=== PATIENT | female | born 1945 | race Two or more races ===

== ENCOUNTER 2018-04-13 11:33 | Inpatient (IN) | payer MEDICARE, BC ==
[~2018-04-13] VITALS: Ht 154.9 cm; Wt 66.7 kg
[2018-04-13 11:33] VITALS: BP 127/80
[~2018-04-13 11:33] MED LIST: ASPIR 8181 MG ORAL; COREG3.125 MG ORAL; NITROGLYCERIN2.5 MG PO; SPIRONOLACTONE100 MG ORAL; XANAX0.5 MG ORAL
--- NOTE | 2018-04-13 11:33 | NUR ---
ED Nurse Note: brought in by Obie from home due to chest pain that started at 1030, nonradiating, 11/16. Pt took 3 nitro and 325mg aspirin. Denies any CP at this time. Meme/Osvaldo. Addendum: 04/13/18 at 1314 by [email or web address] ED Nurse Note: brought in by Obie from home due to chest pain that started at 1030, nonradiating, 11/16. Pt took 3 nitro and 325mg aspirin. Pt's CP went down to 5/10. Denies any CP at this time. Meme/Osvaldo.
--- NOTE | 2018-04-13 11:50 | NUR ---
Note woodone in EDM - 04/13/18 at 1314 by [email or web address] ED Nurse Note: brought in by RA 97 from home due to chest pain that started at 1030, nonradiating, 11/16. Pt took 3 nitro and 325mg aspirin. Pt's CP went down to 5/10. Denies any CP at this time. A/Ox4.
[2018-04-13 11:53] LABS: BASOPHILS % (AUTO) 0.5 % (0.0-2.0); EOSINOPHILS % (AUTO) 0.3 % (0.0-3.0); HEMATOCRIT 34.3 % (37.0-47.0); HEMOGLOBIN 11.7 G/DL (12.0-16.0); MEAN CORPUSCULAR VOLUME 101 FL (80-99); MONOCYTES % (AUTO) 9.1 % (1.0-10.0); NEUTROPHILS % (AUTO) 71.1 % (45.0-75.0); PLATELET COUNT 185 K/UL (150-450); RED BLOOD COUNT 3.42 M/UL (4.20-5.40); RED CELL DISTRIBUTION WIDTH 11.4 % (11.6-14.8); WHITE BLOOD COUNT 9.7 K/UL (4.8-10.8)
[2018-04-13 12:02] LABS: ANION GAP 11 mmol/L (5-15); BLOOD UREA NITROGEN 51 mg/dL (7-18); CARBON DIOXIDE 27 MMOL/L (21-32); CHLORIDE 95 MMOL/L (98-107); CREATININE 1.4 MG/DL (0.55-1.30); POTASSIUM 4.2 MMOL/L (3.5-5.1); SODIUM 133 MMOL/L (136-145)
[2018-04-13 12:17] LABS: ALANINE AMINOTRANSFERASE 42 U/L (12-78); ALBUMIN/GLOBULIN RATIO 1.2 (1.0-2.7); ALKALINE PHOSPHATASE 73 U/L (46-116); ASPARTATE AMINO TRANSFERASE 31 U/L (15-37); BILIRUBIN,TOTAL 0.4 MG/DL (0.2-1.0); CKMB 1.7 NG/ML (0.0-3.6); CREATINE KINASE 77 U/L (26-308)
--- NOTE | 2018-04-13 12:35 | Diagnostic Imaging Report ---
Indication: Chest pain Technique: One view of the chest Comparison: none Findings: There is a left chest unipolar AICD. There are bilateral breast implants. These demonstrate peripheral calcifications. Some atelectasis is seen at the left lateral lung base. Lungs and pleural spaces are clear otherwise. The heart size is normal. The aorta is tortuous Impression: No acute process. Findings as noted
--- NOTE | 2018-04-13 13:29 | NUR ---
ED Nurse Note: 2D Bakery Worker Conveyor Line at the bedside.
[2018-04-13] MEDS ORDERED: dilTIAZem HCl 25mg/5ml Inj IV PRN (13:30)
[2018-04-13] MEDS ORDERED: Enalaprilat 2.5mg/2ml Inj IV PRN (13:30)
[2018-04-13] MEDS ORDERED: Nitroglycerin Subl 0.4mg tab SL PRN (13:30)
[2018-04-13] MEDS ORDERED: Albuterol/Ipratropium 3ml neb HHN PRN (13:30)
[2018-04-13] MEDS ORDERED: Miralax 17gm pkt ORAL PRN (13:30)
[2018-04-13] MEDS ORDERED: Ketorolac 30mg Inj IV PRN (13:30)
[2018-04-13] MEDS ORDERED: Morphine Sulfate 2mg/ml Inj(IV/IM USE ONLY) IVP PRN (13:30)
--- NOTE | 2018-04-13 14:18 | Emergency Room Report ---
History of Present Illness General Chief Complaint: Chest Pain Source: Patient Present Illness HPI 72-year-old female presents ED for evaluation. Patient brought in by EMS for chest pain. Started earlier today while at rest. Substernal, pressure-like, 8 out of 10, nonradiating. States she took nitroglycerin 3 with aspirin without significant relief so she called 911. States that by the time she got to the hospital for her chest pain has since resolved. Denies chest pain at this time. Notes history of hypertension and stent placement. Previous OR. Has a defibrillator. States that her singing messenger is Dr. Trevor Kraus at [facility]. Denies alcohol or drug use. States she is compliant with her medications. No other aggravating relieving factors. Denies any other associated symptoms Allergies: Coded Allergies: No Known Allergies (Unverified , 04/13/18) Patient History Past Medical History: OR, CAD Past Surgical History: none, CABG Pertinent Family History: none Social History: Denies: smoking, alcohol use, drug use Last Menstrual Period: n/a Now: No Immunizations: UTD Reviewed Nursing Documentation: PMH: Agreed; PSxH: Agreed Nursing Documentation-PMH Hx Cardiac Problems: Yes - cardiac arrest 2015, 2 MIs Review of Systems All Other Systems: negative except mentioned in HPI Physical Exam Vital Signs Date Time Temp Pulse Resp B/P (MAP) Pulse Ox O2 Delivery O2 Flow Rate FiO2 04/13/18 11:25 98.2 70 18 100/52 98 Room Air Sp02 EP Interpretation: reviewed, normal General Appearance: no apparent distress, alert, GCS 15, non-toxic Head: normocephalic, atraumatic Eyes: bilateral eye normal inspection, bilateral eye PERRL ENT: hearing grossly normal, normal pharynx, no angioedema, normal voice Neck: full range of motion, supple/symm/no masses Respiratory: chest non-tender, lungs clear, normal breath sounds, speaking full sentences Cardiovascular #1: regular rate, rhythm, no edema Cardiovascular #2: 2+ carotid (R), 2+ carotid (L), 2+ radial (R), 2+ radial (L) , 2+ dorsalis pedis (R), 2+ dorsalis pedis (L) Gastrointestinal: normal bowel sounds, non tender, soft, non-distended, no guarding, no rebound Rectal: deferred Genitourinary: normal inspection, no CVA tenderness Musculoskeletal: back normal, gait/station normal, normal range of motion, non- tender Neurologic: alert, oriented x3, responsive, motor strength/tone normal, sensory intact, speech normal Psychiatric: judgement/insight normal, memory normal, mood/affect normal, no suicidal/homicidal ideation Reflexes: 3+ bicep (R), 3+ bicep (L), 3+ tricep (R), 3+ tricep (L), 3+ knee (R) , 3+ knee (L) Skin: normal color, no rash, warm/dry, well hydrated Lymphatic: no adenopathy Medical Decision Making Diagnostic Impression: Primary Impression: ACS (acute coronary syndrome) Additional Impression: Renal insufficiency ER Course Hospital Course 72 yo F presents to ED c/o chest pain. Differential diagnoses include: OR/unstable angina, contusion, muscle strain, PTX, rib fracture Clinical course Patient placed on stretcher. on cardiac exercise physiologist. After initial history and physical I ordered labs, EKG, chest x-ray labs reviewed- no leukocytosis, hb/hct stable, BUN/Cr elevated, trop negative EKG - NSR, twave flattening noted Chest x-ray- AICD noted, no acute process I spoke to patient's singing messenger Dr. Trevor Kraus; given significant risk factors patient will be admitted Case discussed with Dr. Diaz and he agreed to accept the patient to his service for further care and support I. I feel this is a highly complex case requiring extensive working including EKG/Rhythm strip, Xray/CT/US, Blood/urine lab work, repeat exams while in ED, and administration of strong opiates/narcotics for pain control, admission to hospital or close patient follow up. Diagnosis - ACS, renal insufficiency admitted to telemetry in serious condition Labs Test 04/13/18 11:40 White Blood Count 9.7 K/UL (4.8-10.8) Red Blood Count 3.42 M/UL (4.20-5.40) Hemoglobin 11.7 G/DL (12.0-16.0) Hematocrit 34.3 % (37.0-47.0) Mean Corpuscular Volume 101 FL (80-99) Mean Corpuscular Hemoglobin 34.2 PG (27.0-31.0) Mean Corpuscular Hemoglobin Concent 34.0 G/DL (32.0-36.0) Red Cell Distribution Width 11.4 % (11.6-14.8) Platelet Count 185 K/UL (150-450) Mean Platelet Volume 6.0 FL (6.5-10.1) Neutrophils (%) (Auto) 71.1 % (45.0-75.0) Lymphocytes (%) (Auto) 19.0 % (20.0-45.0) Monocytes (%) (Auto) 9.1 % (1.0-10.0) Eosinophils (%) (Auto) 0.3 % (0.0-3.0) Basophils (%) (Auto) 0.5 % (0.0-2.0) Sodium Level 133 MMOL/L (136-145) Potassium Level 4.2 MMOL/L (3.5-5.1) Chloride Level 95 MMOL/L (98-107) Carbon Dioxide Level 27 MMOL/L (21-32) Anion Gap 11 mmol/L (5-15) Blood Urea Nitrogen 51 mg/dL (7-18) Creatinine 1.4 MG/DL (0.55-1.30) Estimat Glomerular Filtration Rate mL/min (>60) Glucose Level 106 MG/DL (74-106) Calcium Level 9.0 MG/DL (8.5-10.1) Total Bilirubin 0.4 MG/DL (0.2-1.0) Aspartate Amino Transf (AST/SGOT) 31 U/L (15-37) Alanine Aminotransferase (ALT/SGPT) 42 U/L (12-78) Alkaline Phosphatase 73 U/L (46-116) Total Creatine Kinase 77 U/L (26-308) Creatine Kinase MB 1.7 NG/ML (0.0-3.6) Creatine Kinase MB Relative Index 2.2 Troponin I 0.000 ng/mL (0.000-0.056) Pro-B-Type Natriuretic Peptide 363 pg/mL (0-125) Total Protein 7.3 G/DL (6.4-8.2) Albumin 4.0 G/DL (3.4-5.0) Globulin 3.3 g/dL Albumin/Globulin Ratio 1.2 (1.0-2.7) EKG Diagnostic Results Rate: normal Rhythm: NSR ST Segments: other - flattend twaves ASA given to the pt in ED: No - taken prior to arrival Rhythm Strip Diag. Results EP Interpretation: yes Rhythm: NSR, no PVC's, no ectopy Chest X-Ray Diagnostic Results Chest X-Ray Diagnostic Results : Chest X-Ray Ordered: Yes # of Views/Limited/Complete: 1 View Indication: Chest Pain EP Interpretation: Yes Interpretation: no consolidation, no effusion, no pneumothorax, no acute cardiopulmonary disease, other - AICD Impression: No acute disease Electronically Signed by: Electronically signed by Chano Galvez MD Last Vital Signs Date Time Temp Pulse Resp B/P (MAP) Pulse Ox O2 Delivery O2 Flow Rate FiO2 04/13/18 11:33 70 18 Room Air 04/13/18 11:33 98.2 127/80 100 Status: improved Disposition: ADMITTED INPATIENT Condition: Serious Referrals: NON PHYSICIAN (PCP) Chano Galvez MD Apr 13, 2018 14:18
--- NOTE | 2018-04-13 14:26 | NUR ---
ED Nurse Note: notified dr. Lanier that pt took Aspirin today. Per Dr. Lanier, no need to give aspirin. medication returned.
[2018-04-13] MEDS ORDERED: ALPRAZOLAM0.5 MG PO (14:32)
[2018-04-13] MEDS ORDERED: AMBIEN10 M1 ORAL (14:32)
[2018-04-13] MEDS ORDERED: COLCRYS0.6 M1 PO (14:32)
[2018-04-13] MEDS ORDERED: ENTRESTO 24 MG1 EACH PO (14:32)
[2018-04-13] MEDS ORDERED: TYLENOL EXTRA500 MG ORAL (14:32)
[2018-04-13] MEDS ORDERED: LIPITOR80 MG ORAL (14:32)
[2018-04-13] MEDS ORDERED: LAMICTAL200 MG ORAL (14:32)
[2018-04-13] MEDS ORDERED: METHOCARBAMOL5000 GM MC (14:32)
[2018-04-13] MEDS ORDERED: PEPCID AC20 M2 PO (14:32)
--- NOTE | 2018-04-13 14:39 | NUR ---
ED Nurse Note: attempted to give report. Per SONIA Perez, he will call back
[2018-04-13 14:55] VITALS: BP 101/50
--- NOTE | 2018-04-13 14:57 | NUR ---
ED Nurse Note: telephone report given to CN. Elbert
--- NOTE | 2018-04-13 15:03 | NUR ---
TRANSFER TO FLOOR: Patient transferred to #[id number] as ordered via [facility] by KELSI Joya. Report given to KELSI Boswell. Belongings given to patient. Family and or S/O informed of transfer. Denies any CP. No s/s of distress. Skin intact. Addendum: 04/13/18 at 1504 by [email or web address] TRANSFER TO FLOOR: Patient [facility] #[id number] by KELSI Joya. Report given to KELSI Boswell. Belongings given to patient. Family and or S/O informed of transfer. Denies any CP. No s/s of distress. Skin intact. A/Ox4.
--- NOTE | 2018-04-13 15:44 | Consultation ---
History of Present Illness General Date patient seen: Apr 13, 2018 Chief Complaint: Chest Pain Present Illness HPI 72-year-old female with hx of CAD, Stents, Defibrillator, gout presented to ED for evaluation of chest pain while at rest, Substernal, pressure-like, 8 out of 10, nonradiating. States she took nitroglycerin 3 with aspirin without significant relief so she called 911. States she is compliant with her medications. No other aggravating relieving factors. Denies any other associated symptoms. She is admitted to telemetry for further evaluation. Allergies: Coded Allergies: No Known Allergies (Unverified , 04/13/18) Medication History Scheduled Aspirin* (Aspir 81*), 81 MG ORAL DAILY, (Reported) Atorvastatin (Lipitor), 40 MG ORAL BEDTIME, (Reported) Carvedilol (Coreg), 3.125 MG ORAL EVERY 12 HOURS, (Reported) Colchicine (Colcrys), 0.6 MG PO monwed fri, (Reported) Lamotrigine (Lamictal), 200 MG ORAL DAILY, (Reported) Methocarbamol (Methocarbamol), 500 MG MC DAILY, (Reported) Sacubitril/Valsartan (Entresto 24 mg-26 mg Tablet), 1 EACH PO TWICE A DAY, ( Reported) Spironolactone* (Spironolactone*), 100 MG ORAL DAILY, (Reported) Scheduled PRN Acetaminophen* (Tylenol Extra Strength*), 500 MG ORAL Q6H PRN for Mild Pain/ Temp > 100.5, (Reported) Alprazolam* (Xanax*), 0.25 MG PO BID PRN for as needed, (Reported) Zolpidem Tartrate* (Ambien*), 10 MG ORAL HS PRN for Insomnia, (Reported) Miscellaneous Medications Alprazolam* (Xanax*), 0.5 MG ORAL, (Reported) Famotidine (Pepcid Ac), 20 MG PO, (Reported) Nitroglycerin (Nitroglycerin), 2.5 MG PO, (Reported) Patient History Healthcare decision maker Resuscitation status Advanced Directive on File No Past Medical/Surgical History Past Medical/Surgical History: (1) CAD (coronary artery disease) (2) Stented coronary artery (3) ICD (implantable cardioverter-defibrillator) in place Review of Systems Cardiovascular: Reports: chest pain Physical Exam General Appearance: WD/WN, no apparent distress Lines, tubes and drains: peripheral HEENT: normocephalic, atraumatic Neck: non-tender, normal alignment Respiratory/Chest: chest wall non-tender Breasts: no masses Cardiovascular/Chest: normal peripheral pulses Abdomen: non tender Genitourinary/Rectal: normal genital exam Extremities: normal range of motion Last 24 Hour Vital Signs Date Time Temp Pulse Resp B/P (MAP) Pulse Ox O2 Delivery O2 Flow Rate FiO2 04/13/18 15:01 98.2 68 18 101/50 100 Room Air 04/13/18 14:55 98.2 68 18 101/50 100 Room Air 04/13/18 11:33 70 18 Room Air 04/13/18 11:33 98.2 56 16 127/80 100 Room Air 04/13/18 11:25 98.2 70 18 100/52 98 Room Air Laboratory Tests Test 04/13/18 11:40 White Blood Count 9.7 K/UL (4.8-10.8) Red Blood Count 3.42 M/UL (4.20-5.40) L Hemoglobin 11.7 G/DL (12.0-16.0) L Hematocrit 34.3 % (37.0-47.0) L Mean Corpuscular Volume 101 FL (80-99) H Mean Corpuscular Hemoglobin 34.2 PG (27.0-31.0) H Mean Corpuscular Hemoglobin Concent 34.0 G/DL (32.0-36.0) Red Cell Distribution Width 11.4 % (11.6-14.8) L Platelet Count 185 K/UL (150-450) Mean Platelet Volume 6.0 FL (6.5-10.1) L Neutrophils (%) (Auto) 71.1 % (45.0-75.0) Lymphocytes (%) (Auto) 19.0 % (20.0-45.0) L Monocytes (%) (Auto) 9.1 % (1.0-10.0) Eosinophils (%) (Auto) 0.3 % (0.0-3.0) Basophils (%) (Auto) 0.5 % (0.0-2.0) Sodium Level 133 MMOL/L (136-145) L Potassium Level 4.2 MMOL/L (3.5-5.1) Chloride Level 95 MMOL/L (98-107) L Carbon Dioxide Level 27 MMOL/L (21-32) Anion Gap 11 mmol/L (5-15) Blood Urea Nitrogen 51 mg/dL (7-18) H Creatinine 1.4 MG/DL (0.55-1.30) H Estimat Glomerular Filtration Rate mL/min (>60) Glucose Level 106 MG/DL (74-106) Calcium Level 9.0 MG/DL (8.5-10.1) Total Bilirubin 0.4 MG/DL (0.2-1.0) Aspartate Amino Transf (AST/SGOT) 31 U/L (15-37) Alanine Aminotransferase (ALT/SGPT) 42 U/L (12-78) Alkaline Phosphatase 73 U/L (46-116) Total Creatine Kinase 77 U/L (26-308) Creatine Kinase MB 1.7 NG/ML (0.0-3.6) Creatine Kinase MB Relative Index 2.2 Troponin I 0.000 ng/mL (0.000-0.056) Pro-B-Type Natriuretic Peptide 363 pg/mL (0-125) H Total Protein 7.3 G/DL (6.4-8.2) Albumin 4.0 G/DL (3.4-5.0) Globulin 3.3 g/dL Albumin/Globulin Ratio 1.2 (1.0-2.7) Height (Feet): 5 Height (Inches): 3.00 Weight (Pounds): 120 Medications Current Medications Medications (Trade) Dose Ordered Sig/Juan Route PRN Reason Start Time Stop Time Status Last Admin Dose Admin Acetaminophen (Tylenol) 650 mg Q4H PRN ORAL FEVER 04/13/18 13:30 05/13/18 13:29 Albuterol/ Ipratropium (Albuterol/ Ipratropium) 3 ml Q4H PRN HHN Shortness of Breath 04/13/18 13:30 04/18/18 13:29 Alprazolam (Xanax) 0.5 mg EVERY 8 HOURS ORAL 04/13/18 22:00 04/20/18 21:59 Aspirin (ASA) 162 mg DAILY ORAL 04/14/18 09:00 05/14/18 08:59 Carvedilol (Coreg) 3.125 mg EVERY 12 HOURS ORAL 04/13/18 21:00 05/13/18 20:59 Diltiazem HCl (Cardizem) 10 mg Q1H PRN IV heart rate more than 120 04/13/18 13:30 05/13/18 13:29 Enalaprilat (Vasotec) 2.5 mg Q6H PRN IV sbp more than 160 04/13/18 13:30 05/13/18 13:29 Heparin Sodium (Porcine) (Heparin 5000 units/ml) 5,000 units EVERY 12 HOURS SUBQ 04/13/18 21:00 05/13/18 20:59 Ketorolac Tromethamine (Toradol 30mg) 30 mg Q6H PRN IV moderate pain ( 4-6) 04/13/18 13:30 04/18/18 13:29 Morphine Sulfate (Morphine Sulfate) 2 mg Q4H PRN IVP severe Pain (Pain Scale 7-10) 04/13/18 13:30 04/20/18 13:29 Nitroglycerin (Ntg) 0.4 mg Q5M PRN SL Prn Chest Pain 04/13/18 13:30 05/13/18 13:29 Ondansetron HCl (Zofran) 4 mg Q6H PRN IVP Nausea & Vomiting 04/13/18 13:30 05/13/18 13:29 Polyethylene Glycol (Miralax) 17 gm DAILYPRN PRN ORAL Constipation 04/13/18 13:30 05/13/18 13:29 Spironolactone (Aldactone) 100 mg DAILY ORAL 04/14/18 09:00 05/14/18 08:59 Temazepam (Restoril) 15 mg HSPRN PRN ORAL Insomnia 04/13/18 13:30 04/20/18 13:29 Assessment/Plan Problem List: (1) ACS (acute coronary syndrome) ICD Codes: I24.9 - Acute ischemic heart disease, unspecified SNOMED: 526979504 (2) Renal insufficiency ICD Codes: N28.9 - Disorder of kidney and ureter, unspecified SNOMED: 409734978, 699757262 (3) Anxiety ICD Codes: F41.9 - Anxiety disorder, unspecified SNOMED: 05224616 (4) Gout ICD Codes: M10.9 - Gout, unspecified SNOMED: 10968541 Assessment/Plan serial ekg, troponin, echocardiogram monitor renal function. cardiology evaluation symptomatic treatment renal studies dvt prophylaxis Joyce Melendrez MD Apr 13, 2018 15:44
--- NOTE | 2018-04-13 15:49 | NUR ---
admission note: received pateint, a+o x4, breathing even and unlabored on room air. Denies pain, denies dizziness, denies nausea and constipation. Put in single room in 221-2 as requested. Daughter at bed side with multiple requests. skin intact. on tele monitor. oriented to unit. bed alarm on. instructed pipeline controller light use. call light in reach.
[2018-04-13 16:00] VITALS: BP 108/51
--- NOTE | 2018-04-13 17:46 | History & Physical ---
History and Physical History & Physicial Dictated for Int Med-Dr Diaz no. [id number]. Tru Quintanilla MD Apr 13, 2018 17:46
--- NOTE | 2018-04-13 19:15 | NUR ---
NURSE NOTES: Received report from Kiet Crowe RN. Pt is resting in the bed w/o respiratory distress in RA. Bed is in the lowest position, side rails up x2, and breaks are engaged. Call light and side table are w/in reach. Will follow plans of care.
--- NOTE | 2018-04-13 19:36 | NUR ---
hand off: alert and oriented, SR on the monitor, breathing even and unlabored, denies pain, call light in reach, handed off to Pricilla
[2018-04-13 20:00] VITALS: BP 115/67
--- NOTE | 2018-04-13 20:46 | History and Physical Report ---
DATE OF ADMISSION: 04/13/2018 CHIEF COMPLAINT: The patient is a 72-year-old white female, who presents with a chief complaint of chest pain. HISTORY OF PRESENT ILLNESS: The patient has a history of coronary artery disease. The patient is status post myocardial infarction x2 in 2014. The patient had cardiac arrest at that time. The patient underwent balloon angioplasty without stent placement in 2014. The patient states history of present illness began this morning about 10 a.m. while working a [employer] puzzle. The patient began to experience substernal chest pain. This radiated to the neck and to the jaw. The patient states the pain radiates to the bilateral jaws. The patient denies radiation to the shoulder. The patient states the pain lasted approximately 40 minutes. The patient presented to [place] emergency room. The patient was admitted with chest pain to rule out acute coronary syndrome. REVIEW OF SYSTEMS: CONSTITUTIONAL: The patient denies weight loss or weight gain. The patient denies fevers or chills. HEENT: The patient denies ear or throat pain. The patient denies headache. CARDIOVASCULAR: The patient complains of chest pain as above. The patient denies palpitations. CHEST: The patient denies wheeze or shortness of breath. ABDOMINAL: The patient denies nausea, vomiting, diarrhea, or constipation. GENITOURINARY: The patient denies dysuria or increased frequency of urination. NEUROMUSCULAR: The patient denies seizures or generalized weakness. PAST MEDICAL HISTORY: Significant for, 1. Coronary artery disease, status post myocardial infarction x2 and cardiac arrest as above. 2. History of pulmonary edema. 3. Hypertension. 4. Hypercholesterolemia. 5. Lumbar stenosis. PAST SURGICAL HISTORY: Significant for: 1. Coronary angioplasty as above. CURRENT MEDICATIONS: 1. Xanax 0.5 mg p.o. twice daily p.r.n. 2. Atorvastatin 40 mg p.o. at bedtime. 3. Coreg 3.125 mg p.o. twice daily. 4. Colchicine 0.6 mg p.o. every Tuesday, Tuesday, and Tuesday. 5. Pepcid 20 mg p.o. daily. 6. Lamictal 200 mg p.o. daily. 7. Robaxin 500 mg p.o. daily. 8. Nitroglycerin 2.5 mg p.o. daily. 9. Entresto 1 tablet p.o. twice daily. 10. Spironolactone 100 mg p.o. daily. 11. Ambien 10 mg p.o. at bedtime. ALLERGIES: No known drug allergies. SOCIAL HISTORY: The patient is single and lives with her adult daughter. The patient denies tobacco use having quit 23 years ago. The patient admits to alcohol use of one glass of wine and one vodka drink daily. PHYSICAL EXAMINATION: VITAL SIGNS: Temperature 98.2, respirations 18, pulse 70, and blood pressure 100/53. GENERAL: The patient is a well-developed and well-nourished white female, in no apparent distress. HEENT: Eyes, pupils are equal and responsive to light and accommodation. Extraocular movements are intact. NECK: Supple without lymphadenopathy. CHEST: Lungs are clear to auscultation bilaterally without wheezes or rales. CARDIOVASCULAR: Regular rhythm and rate. S1 and S2 are normal without murmurs, rubs, or gallops. ABDOMEN: Soft, nontender, and nondistended. Positive bowel sounds. No evidence of hepatosplenomegaly. Currently, no rebound or guarding noted. EXTREMITIES: Negative for clubbing, cyanosis, or edema. RECTAL/GENITAL: Refused. NEUROLOGIC: Cranial nerves II through XII are grossly intact without focal deficits. Motor strength is 5/5 bilaterally. Deep tendon reflexes are 2+ plantar. LABORATORY STUDIES: WBC 9.7, hemoglobin 11.7, hematocrit 34.3, and platelets 185,000. Sodium 133, potassium 4.2, chloride 95, CO2 27, BUN 51, creatinine 1.4, and glucose 106. Troponin 0.0. BNP 363. EKG is pending. Chest x-ray was reported as no acute disease. EKG is pending. ASSESSMENT: This is a 72-year-old white female. 1. Chest pain. 2. History of coronary artery disease. 3. Hypertension. 4. Hypoglycemia. 5. Lumbar stenosis. 6. Pulmonary edema. 7. AICD in situ. TREATMENT: 1. Chest pain/coronary artery disease. A Cardiology consultation has been obtained with Dr. Ricky Castle. Given history of myocardial infarction x2, serial troponin levels will be performed. The patient may require a Cardiolite stress test during this hospitalization. We will follow recommendations of Cardiology. 2. Hypertension. Continue Entresto as above. 3. Hypercholesterolemia. Continue atorvastatin as above. 4. Lumbar stenosis. 5. Pulmonary edema. 6. Automatic implanted cardioverter defibrillator in situ. Tru Quintanilla M.D. DR: LIVAN JOB#: [id number] CC:
[2018-04-13] MEDS: Heparin 5000 units/ml inj SUBQ SCH (21:00)
--- NOTE | 2018-04-13 21:06 | NUR ---
NURSE NOTES: Pt reported that she need more of home meds to be continued that what it is in the eMAR. Pt refused to take carvedilol 3.125 at this time d/t low dosage than what she usually take before. Will contact to Dr. Diaz regarding home meds. Addendum: 04/13/18 at 2234 by LILIANA CARNEY RN Dr. Diaz ordered Lipitor 40mg PO BID,Pepcid 20mg PO daily, Lamictal 200mg PO daily, Methocarbamol 200mg MC daily, Entresto 42mg PO dialy but discontinue nitropatch 0.1mg Q12HR. Pt said her home dosage 12.5mg of carvedilol BID, but Dr. Diaz denied to increase the dose from 3.125 BID. Any other home med for morning time will be reviewed in the morning per Dr. Diaz. Addendum: 04/13/18 at 8669 by LILIANA CARNEY RN Methocarbamol (Robaxin) 500mg, not 200mg. Also, Dr. Diaz ordered Neurontin 600mg PO daily, Ranexa 500mg PO daily. Pt was instructed to bring Entresto 42mg from home, family will bring it in the morning. Addendum: 04/14/18 at 0410 by LILIANA CARNEY RN Pepcid 20mg daily corrected to Q12H per Dr. Diaz.
[2018-04-13] MEDS: ALPRAZolam 0.5mg tab ORAL SCH (23:14)
[2018-04-13] MEDS: Ranolazine 500mg tab ORAL SCH (23:14)
[2018-04-13] MEDS ORDERED: Methocarbamol 500mg tab ORAL SCH (23:45)
[2018-04-14] VITALS: BP 111/68
[2018-04-14] MEDS: ALPRAZolam 0.5mg tab ORAL SCH ×2 (06:00→14:00)
[2018-04-14 06:52] VITALS: BP 94/48
--- NOTE | 2018-04-14 07:02 | NUR ---
NURSE NOTES: Xanax 0.5mg was wasted d/t pt's refusal after scanning and opening of med for 0600.
--- NOTE | 2018-04-14 07:03 | NUR ---
Dr. Diaz ordered to continue home med of Colchicine (colcrys) 0.6mg Tuesday, Tue, Tuesday. Ordere to keep Spironolacton 20.5mg, denied to increased dose to 100mg which is pt's home dose. Reported K 4.2 level. Will carry out the orders.
[2018-04-14 07:14] LABS: BASOPHILS % (AUTO) 0.6 % (0.0-2.0); EOSINOPHILS % (AUTO) 0.6 % (0.0-3.0); HEMATOCRIT 33.3 % (37.0-47.0); HEMOGLOBIN 11.2 G/DL (12.0-16.0); LYMPHOCYTES % (AUTO) 40.7 % (20.0-45.0); MEAN CORPUSCULAR VOLUME 101 FL (80-99); MONOCYTES % (AUTO) 8.9 % (1.0-10.0); NEUTROPHILS % (AUTO) 49.3 % (45.0-75.0); PLATELET COUNT 173 K/UL (150-450); RED CELL DISTRIBUTION WIDTH 11.7 % (11.6-14.8); WHITE BLOOD COUNT 6.4 K/UL (4.8-10.8)
--- NOTE | 2018-04-14 07:41 | NUR ---
NURSE NOTES: Received bedside report from Pricilla Mills RN. Pt. in bed, awake, a/o x 4. No sign of distress. Denies pain at present. IV site at right AC #20g. SL. Bed in low position, locked. Call light within reach. Will cont. to monitor.
--- NOTE | 2018-04-14 07:41 | NUR ---
HAND-OFF: Report given to KELSI Carter and KELSI Gracia.
[2018-04-14 08:00] VITALS: BP 96/54
[2018-04-14 08:14] LABS: CHOLESTEROL 160 MG/DL (< 200); HDL CHOLESTEROL 90 MG/DL (40-60); TRIGLYCERIDES 71 MG/DL (30-150)
[2018-04-14] MEDS ORDERED: Spironolactone 50mg tab ORAL SCH (09:00)
[2018-04-14] MEDS ORDERED: Aspirin Baby 81mg ORAL SCH (09:00)
[2018-04-14] MEDS ORDERED: Methocarbamol 500mg tab ORAL SCH ×2 (09:00)
[2018-04-14] MEDS: Ranolazine 500mg tab ORAL SCH (09:25)
[2018-04-14] MEDS: Heparin 5000 units/ml inj SUBQ SCH (09:28)
--- NOTE | 2018-04-14 09:58 | NUR ---
CASE MANAGEMENT:REVIEW 72 YR OLD FEMALE BIBA FROM HOME CC: CHEST PAIN SI: ACUTE CORONARY SYNDROME. RENAL INSUFF 98.2 70 18 100/52 98% ON RA BUN+51 CR+1.4 TROPONIN(-) IS: ASA PO ANDROID UI DEVELOPER NITRO X3 ANDROID UI DEVELOPER 500CC NS BOLUS 1L NS BOLUS X1 CXR : TO TELEMETRY INTERQUAL
[2018-04-14 11:14] LABS: CREATINE KINASE 48 U/L (26-308)
--- NOTE | 2018-04-14 11:30 | Pulmonology Progress Note ---
Assessment/Plan Problems: (1) ACS (acute coronary syndrome) (2) Renal insufficiency (3) Anxiety (4) Gout Assessment/Plan Echo reviewed, EF:555 all troponin are negative no more episode of chest pain awaiting cardiology renal w.u symptomatic treatment dvt prophylaxis. Subjective Interval Events: no new complains Allergies: Coded Allergies: No Known Allergies (Unverified , 04/13/18) Objective Last 24 Hour Vital Signs Date Time Temp Pulse Resp B/P (MAP) Pulse Ox O2 Delivery O2 Flow Rate FiO2 04/14/18 09:00 Room Air 04/14/18 09:00 85 96/54 04/14/18 08:00 98.5 85 18 96/54 (68) 94 04/14/18 07:56 82 04/14/18 06:52 96.8 64 18 94/48 (63) 97 04/14/18 03:41 68 04/14/18 00:04 69 04/14/18 00:00 98.0 65 18 111/68 (82) 98 04/13/18 23:13 68 115/67 04/13/18 21:00 Room Air 04/13/18 20:00 97.0 68 18 115/67 (83) 97 04/13/18 19:03 67 04/13/18 16:00 97.6 67 18 108/51 (70) 98 04/13/18 16:00 67 04/13/18 15:58 Room Air 04/13/18 15:01 98.2 68 18 101/50 100 Room Air 04/13/18 14:55 98.2 68 18 101/50 100 Room Air 04/13/18 11:33 70 18 Room Air 04/13/18 11:33 98.2 56 16 127/80 100 Room Air Intake and Output 04/13/18 04/14/18 19:00 07:00 Intake Total 1620 ml Balance 1620 ml Intake Oral 120 ml IV Total 1500 ml # Voids 3 General Appearance: WD/WN HEENT: atraumatic Respiratory/Chest: chest wall non-tender, lungs clear Breasts: no masses Cardiovascular: normal peripheral pulses Abdomen: normal bowel sounds, soft, non tender Genitourinary: normal external genitalia Skin: no rash Laboratory Tests 04/13/18 11:40: White Blood Count 9.7, Red Blood Count 3.42L, Hemoglobin 11.7L, Hematocrit 34.3L , Mean Corpuscular Volume 101H, Mean Corpuscular Hemoglobin 34.2H, Mean Corpuscular Hemoglobin Concent 34.0, Red Cell Distribution Width 11.4L, Platelet Count 185, Mean Platelet Volume 6.0L, Neutrophils (%) (Auto) 71.1, Lymphocytes (%) (Auto) 19.0L, Monocytes (%) (Auto) 9.1, Eosinophils (%) (Auto) 0.3, Basophils (%) (Auto) 0.5, Sodium Level 133L, Potassium Level 4.2, Chloride Level 95L, Carbon Dioxide Level 27, Anion Gap 11, Blood Urea Nitrogen 51H, Creatinine 1.4H, Estimat Glomerular Filtration Rate , Glucose Level 106, Calcium Level 9.0, Total Bilirubin 0.4, Aspartate Amino Transf (AST/SGOT) 31, Alanine Aminotransferase (ALT/SGPT) 42, Alkaline Phosphatase 73, Total Creatine Kinase 77, Creatine Kinase MB 1.7, Creatine Kinase MB Relative Index 2.2, Troponin I 0.000, Pro-B-Type Natriuretic Peptide 363H, Total Protein 7.3, Albumin 4.0, Globulin 3.3, Albumin/Globulin Ratio 1.2 04/14/18 05:40: White Blood Count 6.4, Red Blood Count 3.30L, Hemoglobin 11.2L, Hematocrit 33.3L , Mean Corpuscular Volume 101H, Mean Corpuscular Hemoglobin 34.0H, Mean Corpuscular Hemoglobin Concent 33.8, Red Cell Distribution Width 11.7, Platelet Count 173, Mean Platelet Volume 6.3L, Neutrophils (%) (Auto) 49.3, Lymphocytes ( %) (Auto) 40.7, Monocytes (%) (Auto) 8.9, Eosinophils (%) (Auto) 0.6, Basophils (%) (Auto) 0.6, Total Creatine Kinase 48, Troponin I 0.000, Prothrombin Time 10.7, Prothromb Time International Ratio 1.0, Activated Partial Thromboplast Time 28, Uric Acid 7.7H, C-Reactive Protein, Quantitative < 0.4, Triglycerides Level 71, Cholesterol Level 160, LDL Cholesterol 45, HDL Cholesterol 90H, Cholesterol/HDL Ratio 1.8L, Thyroid Stimulating Hormone (TSH) 3.448 Current Medications Medications (Trade) Dose Ordered Sig/Juan Route PRN Reason Start Time Stop Time Status Last Admin Dose Admin Acetaminophen (Tylenol) 650 mg Q4H PRN ORAL FEVER 04/13/18 13:30 05/13/18 13:29 04/13/18 23:17 Albuterol/ Ipratropium (Albuterol/ Ipratropium) 3 ml Q4H PRN HHN Shortness of Breath 04/13/18 13:30 04/18/18 13:29 Alprazolam (Xanax) 0.5 mg EVERY 8 HOURS ORAL 04/13/18 22:00 04/20/18 21:59 04/13/18 23:14 Aspirin (ASA) 162 mg DAILY ORAL 04/14/18 09:00 05/14/18 08:59 04/14/18 09:24 Atorvastatin Calcium (Lipitor) 40 mg BEDTIME ORAL 04/14/18 21:00 05/14/18 20:59 Carvedilol (Coreg) 3.125 mg EVERY 12 HOURS ORAL 04/13/18 21:00 05/13/18 20:59 04/13/18 23:13 Colchicine (Colchicine) 0.6 mg TUE-TUE-TUE ORAL 04/14/18 21:00 05/14/18 20:59 Diltiazem HCl (Cardizem) 10 mg Q1H PRN IV heart rate more than 120 04/13/18 13:30 05/13/18 13:29 Enalaprilat (Vasotec) 2.5 mg Q6H PRN IV sbp more than 160 04/13/18 13:30 05/13/18 13:29 Famotidine (Pepcid) 20 mg Q12HR ORAL 04/14/18 09:00 05/13/18 22:44 04/14/18 09:25 Gabapentin (Neurontin) 600 mg DAILY ORAL 04/13/18 22:45 05/13/18 22:44 04/13/18 23:15 Heparin Sodium (Porcine) (Heparin 5000 units/ml) 5,000 units EVERY 12 HOURS SUBQ 04/13/18 21:00 05/13/18 20:59 04/14/18 09:28 Ketorolac Tromethamine (Toradol 30mg) 30 mg Q6H PRN IV moderate pain ( 4-6) 04/13/18 13:30 04/18/18 13:29 Lamotrigine (LaMICtal) 200 mg DAILY ORAL 04/13/18 22:45 05/13/18 22:44 04/13/18 23:15 Methocarbamol (Robaxin) 500 mg DAILY ORAL 04/14/18 09:00 05/14/18 08:59 04/14/18 09:26 Morphine Sulfate (Morphine Sulfate) 2 mg Q4H PRN IVP severe Pain (Pain Scale 7-10) 04/13/18 13:30 04/20/18 13:29 Nitroglycerin (Ntg) 0.4 mg Q5M PRN SL Prn Chest Pain 04/13/18 13:30 05/13/18 13:29 Non-Formulary Medication (Non-Formulary Med) 1 ea BID ORAL 04/13/18 22:45 05/13/18 22:44 UNV Ondansetron HCl (Zofran) 4 mg Q6H PRN IVP Nausea & Vomiting 04/13/18 13:30 05/13/18 13:29 Polyethylene Glycol (Miralax) 17 gm DAILYPRN PRN ORAL Constipation 04/13/18 13:30 05/13/18 13:29 Ranolazine (Ranexa ER 500mg) 500 mg Q12HR ORAL 04/13/18 22:45 05/13/18 22:44 04/14/18 09:25 Spironolactone (Aldactone) 100 mg DAILY ORAL 04/14/18 09:00 05/14/18 08:59 04/14/18 09:26 Temazepam (Restoril) 15 mg HSPRN PRN ORAL Insomnia 04/13/18 13:30 04/20/18 13:29 04/13/18 23:59 Joyce Melendrez MD Apr 14, 2018 11:30
[2018-04-14 11:55] VITALS: BP 112/57
--- NOTE | 2018-04-14 13:19 | Cardiology Report ---
APPROVED REPORT EKG Measurement Heart [id number] Sinus bradycardia Anteroseptal infarct, age undetermined Abnormal ECG
[2018-04-14] MEDS ORDERED: Tubing IV Secondary IV ONE (15:20)
[2018-04-14 16:00] VITALS: BP 119/65
--- NOTE | 2018-04-14 17:11 | Cardiology Progress Note ---
Assessment/Plan Assessment/Plan [id number] Objective Last 24 Hour Vital Signs Date Time Temp Pulse Resp B/P (MAP) Pulse Ox O2 Delivery O2 Flow Rate FiO2 04/14/18 16:00 98.4 69 18 119/65 (83) 96 04/14/18 16:00 67 04/14/18 11:55 98.3 66 18 112/57 (75) 95 04/14/18 11:50 68 04/14/18 09:00 Room Air 04/14/18 09:00 85 96/54 04/14/18 08:00 98.5 85 18 96/54 (68) 94 04/14/18 07:56 82 04/14/18 06:52 96.8 64 18 94/48 (63) 97 04/14/18 03:41 68 04/14/18 00:04 69 04/14/18 00:00 98.0 65 18 111/68 (82) 98 04/13/18 23:13 68 115/67 04/13/18 21:00 Room Air 04/13/18 20:00 97.0 68 18 115/67 (83) 97 04/13/18 19:03 67 Intake and Output 04/13/18 04/14/18 19:00 07:00 Intake Total 1620 ml Balance 1620 ml Intake Oral 120 ml IV Total 1500 ml # Voids 3 Laboratory Tests Test 04/14/18 05:40 White Blood Count 6.4 K/UL (4.8-10.8) Red Blood Count 3.30 M/UL (4.20-5.40) L Hemoglobin 11.2 G/DL (12.0-16.0) L Hematocrit 33.3 % (37.0-47.0) L Mean Corpuscular Volume 101 FL (80-99) H Mean Corpuscular Hemoglobin 34.0 PG (27.0-31.0) H Mean Corpuscular Hemoglobin Concent 33.8 G/DL (32.0-36.0) Red Cell Distribution Width 11.7 % (11.6-14.8) Platelet Count 173 K/UL (150-450) Mean Platelet Volume 6.3 FL (6.5-10.1) L Neutrophils (%) (Auto) 49.3 % (45.0-75.0) Lymphocytes (%) (Auto) 40.7 % (20.0-45.0) Monocytes (%) (Auto) 8.9 % (1.0-10.0) Eosinophils (%) (Auto) 0.6 % (0.0-3.0) Basophils (%) (Auto) 0.6 % (0.0-2.0) Prothrombin Time 10.7 SEC (9.30-11.50) Prothromb Time International Ratio 1.0 (0.9-1.1) Activated Partial Thromboplast Time 28 SEC (23-33) Uric Acid 7.7 MG/DL (2.6-7.2) H Total Creatine Kinase 48 U/L (26-308) Troponin I 0.000 ng/mL (0.000-0.056) C-Reactive Protein, Quantitative < 0.4 mg/dL (0.00-0.90) Triglycerides Level 71 MG/DL (30-150) Cholesterol Level 160 MG/DL (< 200) LDL Cholesterol 45 mg/dL (<100) HDL Cholesterol 90 MG/DL (40-60) H Cholesterol/HDL Ratio 1.8 (3.3-4.4) L Thyroid Stimulating Hormone (TSH) 3.448 uiU/mL (0.358-3.740) Ricky Castle MD Apr 14, 2018 17:11
--- NOTE | 2018-04-14 17:43 | Internal Med Progress Note ---
Subjective Physician Name Huy Diaz Attending Physician Huy Diaz MD Current Medications Medications (Trade) Dose Ordered Sig/Juan Route PRN Reason Start Time Stop Time Status Last Admin Dose Admin Acetaminophen (Tylenol) 650 mg Q4H PRN ORAL FEVER 04/13/18 13:30 05/13/18 13:29 04/13/18 23:17 Albuterol/ Ipratropium (Albuterol/ Ipratropium) 3 ml Q4H PRN HHN Shortness of Breath 04/13/18 13:30 04/18/18 13:29 Alprazolam (Xanax) 0.5 mg EVERY 8 HOURS ORAL 04/13/18 22:00 04/20/18 21:59 04/13/18 23:14 Aspirin (ASA) 162 mg DAILY ORAL 04/14/18 09:00 05/14/18 08:59 04/14/18 09:24 Atorvastatin Calcium (Lipitor) 40 mg BEDTIME ORAL 04/14/18 21:00 05/14/18 20:59 Carvedilol (Coreg) 3.125 mg EVERY 12 HOURS ORAL 04/13/18 21:00 05/13/18 20:59 04/13/18 23:13 Colchicine (Colchicine) 0.6 mg TUE-TUE-TUE ORAL 04/14/18 21:00 05/14/18 20:59 Diltiazem HCl (Cardizem) 10 mg Q1H PRN IV heart rate more than 120 04/13/18 13:30 05/13/18 13:29 Enalaprilat (Vasotec) 2.5 mg Q6H PRN IV sbp more than 160 04/13/18 13:30 05/13/18 13:29 Famotidine (Pepcid) 20 mg Q12HR ORAL 04/14/18 09:00 05/13/18 22:44 04/14/18 09:25 Gabapentin (Neurontin) 600 mg DAILY ORAL 04/13/18 22:45 05/13/18 22:44 04/13/18 23:15 Heparin Sodium (Porcine) (Heparin 5000 units/ml) 5,000 units EVERY 12 HOURS SUBQ 04/13/18 21:00 05/13/18 20:59 04/14/18 09:28 Ketorolac Tromethamine (Toradol 30mg) 30 mg Q6H PRN IV moderate pain ( 4-6) 04/13/18 13:30 04/18/18 13:29 Lamotrigine (LaMICtal) 200 mg DAILY ORAL 04/13/18 22:45 05/13/18 22:44 04/13/18 23:15 Methocarbamol (Robaxin) 500 mg DAILY ORAL 04/14/18 09:00 05/14/18 08:59 04/14/18 09:26 Morphine Sulfate (Morphine Sulfate) 2 mg Q4H PRN IVP severe Pain (Pain Scale 7-10) 04/13/18 13:30 04/20/18 13:29 Nitroglycerin (Ntg) 0.4 mg Q5M PRN SL Prn Chest Pain 04/13/18 13:30 05/13/18 13:29 Non-Formulary Medication (Non-Formulary Med) 1 ea BID ORAL 04/13/18 22:45 05/13/18 22:44 UNV Ondansetron HCl (Zofran) 4 mg Q6H PRN IVP Nausea & Vomiting 04/13/18 13:30 05/13/18 13:29 Polyethylene Glycol (Miralax) 17 gm DAILYPRN PRN ORAL Constipation 04/13/18 13:30 05/13/18 13:29 Ranolazine (Ranexa ER 500mg) 500 mg Q12HR ORAL 04/13/18 22:45 05/13/18 22:44 04/14/18 09:25 Spironolactone (Aldactone) 100 mg DAILY ORAL 04/14/18 09:00 05/14/18 08:59 04/14/18 09:26 Temazepam (Restoril) 15 mg HSPRN PRN ORAL Insomnia 04/13/18 13:30 04/20/18 13:29 04/13/18 23:59 Allergies: Coded Allergies: No Known Allergies (Unverified , 04/13/18) Subjective Awake, alert, responsive, denies any chest pain, denies any shortness of breath , here to go home. Objective Last Vital Signs Date Time Temp Pulse Resp B/P (MAP) Pulse Ox O2 Delivery O2 Flow Rate FiO2 04/14/18 16:00 98.4 69 18 119/65 (83) 96 04/14/18 09:00 Room Air Laboratory Tests Test 04/14/18 05:40 White Blood Count 6.4 K/UL (4.8-10.8) Red Blood Count 3.30 M/UL (4.20-5.40) L Hemoglobin 11.2 G/DL (12.0-16.0) L Hematocrit 33.3 % (37.0-47.0) L Mean Corpuscular Volume 101 FL (80-99) H Mean Corpuscular Hemoglobin 34.0 PG (27.0-31.0) H Mean Corpuscular Hemoglobin Concent 33.8 G/DL (32.0-36.0) Red Cell Distribution Width 11.7 % (11.6-14.8) Platelet Count 173 K/UL (150-450) Mean Platelet Volume 6.3 FL (6.5-10.1) L Neutrophils (%) (Auto) 49.3 % (45.0-75.0) Lymphocytes (%) (Auto) 40.7 % (20.0-45.0) Monocytes (%) (Auto) 8.9 % (1.0-10.0) Eosinophils (%) (Auto) 0.6 % (0.0-3.0) Basophils (%) (Auto) 0.6 % (0.0-2.0) Prothrombin Time 10.7 SEC (9.30-11.50) Prothromb Time International Ratio 1.0 (0.9-1.1) Activated Partial Thromboplast Time 28 SEC (23-33) Uric Acid 7.7 MG/DL (2.6-7.2) H Total Creatine Kinase 48 U/L (26-308) Troponin I 0.000 ng/mL (0.000-0.056) C-Reactive Protein, Quantitative < 0.4 mg/dL (0.00-0.90) Triglycerides Level 71 MG/DL (30-150) Cholesterol Level 160 MG/DL (< 200) LDL Cholesterol 45 mg/dL (<100) HDL Cholesterol 90 MG/DL (40-60) H Cholesterol/HDL Ratio 1.8 (3.3-4.4) L Thyroid Stimulating Hormone (TSH) 3.448 uiU/mL (0.358-3.740) Intake and Output 04/13/18 04/14/18 19:00 07:00 Intake Total 1620 ml Balance 1620 ml Intake Oral 120 ml IV Total 1500 ml # Voids 3 Objective General: No acute distress, awake and alert HEENT: NCAT, sclera anicteric, PERRL, EOMI. Neck: Supple, no significant jugular venous distention, Lungs: Good inspiratory effort, no accessory muscle use, clear to auscultation bilaterally, no Wheeze or Rales. Heart: Regular rate and rhythm, normal S1/S2, no murmur, AICD on the left chest wall. Abdomen: soft, nontender, nondistended. Normoactive bowel sounds. / Rectal: Refused and deferred. Extremities: No Cyanosis , clubbing or edema. Neuro: A&O x 3, Able to move all extremities Skin: warm, no rashes or lesions Psych: Normal mood and affect Assessment/Plan Assessment/Plan 1. Chest pain. 2. History of coronary artery disease. 3. Hypertension. 4. Hypoglycemia. 5. Lumbar stenosis. 6. Pulmonary edema. 7. AICD in situ. TREATMENT: 1. Chest pain/coronary artery disease. A Cardiology consultation has been obtained with Dr. Ricky Castle. Given history of myocardial infarction x2, serial troponin levels will be performed. The patient may require a Cardiolite stress test during this hospitalization. We will follow recommendations of Cardiology. 2. Hypertension. Continue Entresto as above. 3. Hypercholesterolemia. Continue atorvastatin as above. 4. Lumbar stenosis. 5. Pulmonary edema. 6. Automatic implanted cardioverter defibrillator in situ. Plan: Discharged home today to be follow-up with primary doctor at [facility]. Huy Diaz MD Apr 14, 2018 17:43
--- NOTE | 2018-04-14 18:06 | NUR ---
Discharge: Patient is being discharged to home from medical care. Awake, alert and oriented x4. After care instructions were given. Patient verbalized understanding of after care instructions upon discharge. All medical devices such as IV, alarm security or surveillance monitor and ID band were removed. Patient ambulated out with all personal belongings with steady gait. Accompanied by son in law.
[2018-04-14] MEDS ORDERED: Atorvastatin 80mg tab ORAL SCH (21:00)
--- NOTE | 2018-04-15 01:31 | Consultation ---
DATE OF CONSULTATION: 04/14/2018 CARDIOLOGY CONSULTATION CONSULTING PHYSICIAN: Ricky Castle M.D. REFERRING PHYSICIAN: Huy Diaz M.D. REASON FOR REFERRAL: Chest pain. HISTORY OF PRESENT ILLNESS: This is a 72-year-old female who is usually followed by Dr. Rhys hayes at [facility]. She has a history of nonischemic cardiomyopathy, ejection fraction of 42%; class 1 nonobstructive coronary disease based on cardiac catheterization in 2014; [id number] myocardial infarction in May 2014 and September of 2014; history of VF arrest status post ICD implantation in 2014; history of hypertension and atypical chest pains, which have been apparently thought to be secondary to vasospasm versus coronary or vascular dysfunction or noncardiac character related based on the fact that previous troponins are negative and her EKG showed no ischemic changes. She is followed by cardiomyopathy clinic and Crestor was previously increased and she has actually been doing relatively well today. Actually at the time of her admission, she had experienced recurrent chest pain. She describes it starts in the neck and moves down in her abdomen. These are not exercise related or exertion related. She took nitroglycerin on three separate occasions [id number] without any relief, so she called 911. She was brought to the emergency room here at [facility]. She is absolutely fine and she wants to really go home. She does not have any PND or orthopnea. No palpitation. She uses one pillow. There is no dizziness or lightheadedness on standing unless she does so fast, there is no heart pounding or palpitation. PAST MEDICAL HISTORY: As mentioned above. History of nonischemic cardiomyopathy and cardiac catheterization in 2014, which showed nonobstructive coronary disease. She has had a couple of non ST-elevation myocardial infarction; VF arrest, status post ICD implantation; hypertension; gastroesophageal reflux disease; history of cervical stenosis of the spine; chronic bronchitis; heart failure; arthritis; COPD; systemic hypertension; hyperlipidemia; hypotension; questionable previously and URI. She has had a history of as mentioned, , plastic surgery, and she had ICD implantation. SOCIAL HISTORY: She does not smoke. She has no known drug allergies. She is and she has a prior history of smoking and 12 glasses of wine per week is what she describes. She quit smoking 20 years ago. REVIEW OF SYSTEMS: GASTROINTESTINAL: Negative. GENITOURINARY: Negative. PULMONARY: She had a bronchitis. She was treated with a course of antibiotics and all of those symptoms have seemed to have resolved. She did have some wheezing. CONSTITUTIONAL: Negative. NEUROLOGIC: Negative. PHYSICAL EXAMINATION: GENERAL: Shows to be an elderly female, in no respiratory distress. HEENT: Unremarkable. NECK: Supple. No jugular venous distention. LUNGS: Appear to be relatively clear to auscultation and percussion. CARDIAC: S1 is normal. S2 is normal. Regular rate and rhythm. No RV lifts, heaves or thrills noted. ABDOMEN: Soft and nontender. Positive bowel sounds. EXTREMITIES: There is no clubbing or cyanosis nor is there any edema. NEUROLOGIC: She is awake, alert, and responsive and in no respiratory distress. LABORATORY AND DIAGNOSTIC DATA: White count 6.4, hemoglobin 11.2, and platelet count of 173,000. Also, two sets cardiac exam negative and proBNP is only 363. Her creatinine is 1.4. Uric acid is 7.7. Sodium 132, potassium 4.2, chloride , bicarb 27, BUN of 51, creatinine 1.4, and troponins again are negative on two separate occasions. Total cholesterol of 160, LDL of 45, and HDL of 90. TSH of 3.48. Coagulation studies, INR 1.0 and PTT of 28. Imaging, chest x-ray that showed no acute processes. Her electrocardiogram shows sinus rhythm and some nonspecific T-wave changes, mainly in V4 and V5, and there does not appear to be any significant change than the prior EKGs at [facility] in November 2017. ASSESSMENT AND PLAN: 1. Recurrent episodes of chest pain. 2. Normal sinus rhythm, some QS waves in V1 through V3. Delay in R-wave progression, which is similar to what she was having in November 2012 with T-wave inversions in V3, V4, V5, and V6, which were present previously on older EKG. ASSESSMENT AND PLAN: 1. Chest pain with history of the same. 2. Nonobstructive coronary disease based on cardiac catheterization years ago. 3. History of nonischemic cardiomyopathy. 4. History of intracardiac defibrillator placement. 5. History of ventricular tachycardia with VF arrest. 6. Recent bronchitis. Dr. Diaz, this patient was seen in cardiac consultation. The patient is absolutely anxious to go home. It is indicated there is nothing wrong with her examination. There is no evidence of cardiac enzyme abnormality. She has had extensive workup and evaluation at [facility] previously and she has even had this chest pain, which has been evaluated extensively as well with the possibilities of small vessel disease versus noncardiac etiologies that have been raised and rightfully so. If she feels fine, she should be allowed to walk around as she wishes to to be discharged home. I see no other reasons that are major in terms of needing her to stay in the hospital. Dr. Diaz, thank you for allowing me to participate in the care of this patient. Ricky Castle M.D. DR: JOSE JOB#: [id number] CC:
--- NOTE | 2018-04-17 10:46 | Discharge Summary ---
Discharge Summary Discharge Summary _ DATE OF ADMISSION: 04/13/2018 DATE OF DISCHARGE: 04/14/2018 DISCHARGED BY: Dr. Diaz REASON FOR ADMISSION: 72 years old female with past medical history of coronary artery disease, status post myocardial infarction, status post CABG, hypertension, defibrillator , presented to emergency department due to chest pain. Chest pain started earlier while at rest. Chest pain described as substernal, pressure-like, nonradiating, 8 out of 10 on a scale of 1-10. Patient reported taking nitroglycerin x3 with aspirin without significant relief Patient subsequently called paramedics. Chest pain resolved upon arrival to emergency department. Upon evaluation and emergency department vital signs were stable. Chest x-ray revealed no acute cardia pulmonary pathology. No leukocytosis. Stable hemoglobin and hematocrit. BUN 51, creatinine 1.4. Sodium 133. Troponin was negative. EKG revealed no acute ischemic changes. Pro BNP 363. Patient admitted to telemetry floor for further management CONSULTANTS: incident response analyst Dr. Castle pulmonary Dr. Melendrez [facility]SE: Patient admitted to telemetry floor. Cardiology and pulmonology consult were requested. Serial troponin were negative. EKG and telemetry revealed no acute ischemic changes. Patient was ruled out for acute myocardial infarction. Echocardiogram revealed preserved ejection fraction 55-60% with no evidence of left ventricular hypertrophy. Right ventricular systolic pressure of 39 consistent with mild pulmonary hypertension. Antiplatelet therapy with aspirin, statin, and anti-failure medication regimen with beta-lm ,ARIEL inhibitor and Aldactone were continued. Ranexa was continued. DVT and GI prophylaxis provided. Other home medication were resumed. Bowel regimen instituted. Cardiac exam was stable. Patient had prior extensive workup and evaluation at [facility] for recurrent chest pain episodes with possibility of small vessel disease versus noncardiac etiology . Per incident response analyst, patient had nonobstructive coronary disease based on cardiac catheterization years ago. Equalizing Saw Operator cleared patient for discharge and follow-up with her outpatient incident response analyst. Pulmonary toilet were on board as needed. Pulse oximetry was stable on room air. Patient noted to have renal insufficiency. Recommended to avoid nephrotoxic and close monitoring of renal parameters as outpatient. Patient clinically stabilized and was ready for discharge home . Due to rapid and unexpected improvement of patient condition, patient was discharged in 1 day. FINAL DIAGNOSES: Recurrent episode of chest pain -ruled out for [place] Nonobstructive coronary disease (based on cardiac catheterization year ago) History of nonischemic cardiomyopathy AICD in situ History of ventricular tachycardia with ventricular fibrillation arrest Recent bronchitis Hypertension Hypercholesterolemia Lumbar stenosis DISCHARGE MEDICATIONS: List of medication was sent with patient. DISCHARGE INSTRUCTIONS: Patient was discharged home daily Follow up with primary care provider in one week and outpatient incident response analyst at [facility]. I have been assigned to dictate discharge summary for this account. I was not involved in the patient's management. Angeles Babcock NP Apr 17, 2018 10:46
--- NOTE | 2018-04-20 20:53 | Cardiology Report ---
APPROVED REPORT EXAM: Two-dimensional and M-mode echocardiogram with Doppler and color Doppler. INDICATION LV FUNCTION M-Mode DIMENSIONS IVSd0.9 (0.7-1.1cm)Left Atrium (MM)3.3 (1.6-4.0cm) LVDd4.5 (3.5-5.6cm)Aortic Root2.9 (2.0-3.7cm) PWd1.0 (0.7-1.1cm)Aortic Cusp Exc.2.3 (1.5-2.0cm) IVSs1.4 cm LVDs2.9 (2.5-4.0cm) PWs1.5 cm Normal left ventricular chamber size, there is anteroseptal wall hypokinesia. Left ventricular ejection fraction is estimated at 45-50%. Ischemic cardiomyopathy cannot be excluded. No evidence of left ventricular hypertrophy. No evidence of pericardial effusion All other cardiac chamber sizes are within normal limits. Focal aortic valve sclerosis with adequate cusp excursion. Thickened mitral valve leaflets with normal excursion. Mitral annulus and aortic root calcification. Pulmonic valve not well visualized. Normal tricuspid valve structure. IVC dilated at 2.4 cm with physiologic collapse suggestive of increased RA pressure. A color flow and spectral Doppler study was performed and revealed: No aortic regurgitation. Trace mitral regurgitation. Mitral diastolic velocities suggest reduced left ventricular relaxation c/w mild LV diastolic dysfunction (Grade I ). Mild to moderate tricuspid regurgitation. Tricuspid systolic velocities suggests peak right ventricular systolic pressure of 39 mmHg,consistent with mild pulmonary hypertension.
--- NOTE | 2018-04-25 17:45 | Physician Query ---
--------- THIS DOCUMENT IS A PERMANENT PART OF THE MEDICAL RECORD --------- PLEASE COMPLETE THE DOCUMENT BEFORE SIGNING Dear Dr. COHEN Date: 04/25/18 Front Maker/CDS' Name: ANGELICA THAKUR, MEAGAN Exercise your independent professional judgment when responding to query. Questions asked do not imply particular answer is desired or expected. We greatly appreciate your clarification on this issue. Clinical Documentation States:REASON FOR ADMISSION: CHEST PAIN 72 years old female with past medical history of coronary artery disease, status post myocardial infarction, status post CABG, hypertension, defibrillator , presented to emergency department due to chest pain. Chest x-ray revealed no acute cardia pulmonary pathology. No leukocytosis. Stable hemoglobin and hematocrit. BUN 51, creatinine 1.4. Sodium 133. Troponin was negative. EKG revealed no acute ischemic changes. Pro BNP 363. Patient had prior extensive workup and evaluation at [facility] for recurrent chest pain episodes with possibility of small vessel disease versus noncardiac etiology . Per metal stamper, patient had nonobstructive coronary disease based on cardiac catheterization years ago. Telephone Switchboard Operator cleared patient for discharge and follow-up with her outpatient metal stamper. Please document the suspected etiology of Chest Pain: a.Type: [x]Cardiac []Non-cardiac []Unspecified b.Etiology - cardiac [] Aortic dissection []Mitral valve prolapsed [] Acute myocardial infarction [x]Spasm of coronary arteries [] Coronary Artery Disease []Pericarditis c.Etiology - non-cardiac [] Anxiety []Pleurisy [] Cancer []Pneumonia, type [] Costochondritis []Pneumothorax [] GERD/Esophagitis []Pulmonary embolism [] Unable to determine []Other: JULIA COHEN M.D. DATE & [facility]
== END 2018-04-14 18:05 | disposition home or self-care (01) | DRG 311 ==
LOC: EDBD 11:33 → EMR 12:33 → 2E 12:40 → EDBEDREQ 14:24 → 2E 15:58
DX: I20.1 Angina pectoris with documented spasm (principal); I25.10 Atherosclerotic heart disease of native coronary artery without angina pectoris; I10 Essential (primary) hypertension; Z95.810 Presence of automatic (implantable) cardiac defibrillator; Z86.74 Personal history of sudden cardiac arrest; E78.00 Pure hypercholesterolemia, unspecified; M48.061 Spinal stenosis, lumbar region without neurogenic claudication; Z95.5 Presence of coronary angioplasty implant and graft; F41.9 Anxiety disorder, unspecified; M10.9 Gout, unspecified; Z87.891 Personal history of nicotine dependence
CPT/HCPCS: 36415; 71045; 80053; 80061; 82550; 82553; 83880; 84443; 84484; 84550; 85025; 85610; 85730; 86140; 93005; 93306; 96360; 99285